=== PATIENT | female | born 1995 | race African-American/Black ===

== ENCOUNTER 2017-01-29 14:32 | Emergency (ER) | payer SELFPAY ==
[2017-01-29 14:39] VITALS: BP 130/68; BMI 48.9
--- NOTE | 2017-01-29 15:22 | DR.GENAD ---
HPI - PCP Primary Care Physician: NFD - Complaint/Symptoms Chief Complaint Doctors Comments: Patient admits to getting a sprain of the left ankle one months ago. She was evaluated in the ED while living in [place] and x rays negative for fracture. She was given a ankle support to wear but stated that she could not walke it. She recently moved from [place] and is seeking employment. The pain is 6/10, moderate in severity. Chief Complaint:: PT C/O LT ANKLE PAIN. PT STATES SHE HAS A HISTORY OF TORN LIGAMENTS IN THIS SAME ANKLE. PT STATES SHE IS JUST HAVING PAINS WHEN WALKING AND MOVING IT A CERTAIN WAY. - Source History Provided: Patient - Mode of Arrival Mode of Arrival: Ambulatory - Timing Onset of Chief Complaint: 01/26/17 PMH - PMH Past Medical History: Yes Past Medical History: Anxiety, Asthma Past Surgical History: No - Family History History of Family Medical Conditions: Yes Family Medical History: Diabetes Mellitus Family Medical History Comment: SEIZURES - Social History Does any household member use tobacco: No Alcohol Use: None Do you use any recreational Drugs:: No Lives With: Family Lives Where: Home - infectious screening In the last 2 months have you had wt loss of >10#?: NO Have you had fever, night sweats or hemotysis?: No Have you traveled outside the country in the last 6 months?: No Isolation: Standard ROS - Review of Systems Eyes: No Symptoms Reported ENTM: No Symptoms Reported Respiratoy: No Symptoms Reported Cardiovascular: No Symptoms Reported Gastrointestinal/Abdominal: No Symptoms Reported Genitourinary: No Symptoms Reported Neurological: No Symptoms Reported Musculoskeletal: Ankle (left) Integumentary: No Symptoms Reported Hematologic/Lymphatic: No Symptoms Reported Endocrine: No Symptoms Reported Psychiatric: No Symptoms Reported All Other Systems: Reviewed and Negative PE - Vital Signs Vitals: Temperature 97.6 F Pulse Rate 88 Respiratory Rate 20 Blood Pressure 130/68 O2 Sat by Pulse Oximetry 98 - General General Appearance: Alert, In No Apparent Distress - Head Head Exam: Normal Inspection, Atraumatic - Eyes Eye exam: Normal Appearance, PERRL, EOMI - ENT ENT Exam: Normal Exam External Ear Exam: Normal External Inspection TM/Canal Exam: Bilateral Normal Nose Exam: Normal Nose Exam Mouth Exam: Normal Inspection Throat Exam: Normal Inspection - Neck Neck Exam: Normal Inspection - Chest Chest Inspection: Normal Inspection - Respiratory Respiratory Exam: Normal Lung Sounds Bilat Respiratory Exam: Bilateral Clear to Auscultation - Cardiovascular Cardiovascular Exam: Regular Rate - Abdominal Exam Abdominal Exam: Normal Inspection Abdominal Tenderness: negative: RUQ, RLQ, LUQ, LLQ, Epigastrium, Suprapubic, Diffuse, Mild, Moderate, Severe, Other - Extremities Extremities Exam: Joint Swelling (left ankle) - Back Back Exam: Normal Inspection - Neurologic Neurological Exam: Alert, Oriented X3, CN II-XII Intact - Psychiatric Psychiatric Exam: Normal Affect, Normal Mood - Skin Skin Exam: Warm, Dry, Intact Course - Reevaluation 1st: Unchanged - Education/Counseling Educated On: Treatment, Diagnosis, Prognosis, Needs for Follow Up - Diagnosis Discharge Problem: Ankle sprain Qualifiers: Encounter type: subsequent encounter Involved ligament of ankle: calcaneofibular ligament Laterality: left Qualified Code(s): S93.412D - Sprain of calcaneofibular ligament of left ankle, subsequent encounter - Discharge Plan Condition: Stable - Follow ups/Referrals Follow ups/Referrals: NFD,None [Primary Care Provider] - 3 days - Instructions
== END 2017-01-29 15:32 | disposition home or self-care (01) ==
LOC: ER 14:32
DX: S93.412D Sprain of calcaneofibular ligament of left ankle, subsequent encounter (principal); Y33.XXXA Other specified events, undetermined intent, initial encounter; Y92.9 Unspecified place or not applicable
CPT/HCPCS: 99282